=== PATIENT | male | born 1995 | race Asian ===

== ENCOUNTER 2019-01-07 17:50 | Observation (INO) | payer OTHER ==
[2019-01-07 19:53] LABS: ABS Basophils 0 10^3/ul (0-0.2); ABS Eosinophils 0.1 10^3/ul (0-0.6); ABS Lymphocytes 1.9 10^3/ul (1.0-4.8); ABS Monocytes 0.8 10^3/ul (0-0.8); ABS Neutrophils 8.9 10^3/ul (1.5-7.7); ABS Nucleated RBC 0 10^3/ul; Eosinophil % 0.6 %; Hematocrit 46 % (42-52); Hemoglobin 14.9 g/dl (14.0-18.0); Lymphocyte % 16.2 %; Mean Corpuscular HGB Conc 32 g/dl (31-36); Mean Corpuscular Hemoglobin 27 pg (27-31); Mean Corpuscular Volume 83 fL (80-94); Mean Platelet Volume 8.3 fL (7.4-10.4); Nucleated Red Blood Cells % 0; Platelet Count 325 10^3/ul (150-450); Red Blood Count 5.53 10^6/ul (4.00-5.40); Red Cell Distribution Width 15 % (10.5-15); White Blood Count 11.8 10^3/ul (3.5-10.8)
[2019-01-07] MEDS ORDERED: ceFAZolin 2 GM in NS PREMIX(*) 2 GM/100 ML BAG IVPB ONE (23:38)
[2019-01-07 23:47] LABS: Albumin 4.2 g/dL (3.2-5.2); Calcium 9.9 mg/dL (8.6-10.3); Potassium 4.4 mmol/L (3.5-5.0); Total Bilirubin 0.3 mg/dL (0.2-1.0)
[2019-01-07 23:53] LABS: Albumin/Globulin Ratio 1.5 (1-3); BUN/Creatinine Ratio 22.8 (8-20); EGFR African American 147.1 (>60); EGFR Non-African American 121.5 (>60); Globulin 2.8 g/dL (2-4)
[2019-01-07] MEDS ORDERED: Iohexol 300* (CONTRAST) 10 ML SDV IV ONE (23:58)
[2019-01-08] MEDS ORDERED: ceFAZolin* 2 GM* ONE DOSE (Duplex) IVPB
[2019-01-08] MEDS ORDERED: traMADol TAB* 50 MG PO PRN (00:04)
[2019-01-08] MEDS ORDERED: Acetaminophen TAB* 325 MG PO PRN (00:04)
[2019-01-08] MEDS ORDERED: Albuterol 2.5 MG/3 ML NEB.SOL* (0.083%) INH PRN (00:12)
[2019-01-08] MEDS ORDERED: DOXYcycline IV* 100 MG in NS 0.9% 250 ML* 250 ML IVPB SCH (01:00)
--- NOTE | 2019-01-08 01:00 | ED ---
Lower Extremity - HPI Summary HPI Summary: The patient is a 23 y/o M presenting to [facility] with a chief complaint of pain, swelling, and erythema in the left calf with gradual worsening over the last few days. He states that he injected himself with B12 supplements in the calf after diagnosing himself with anemia; he thought that the injections would help him feel less fatigued. He has used these injections almost every other day for the last few weeks, but the last injection was yesterday. The aching pain is currently rated 1/10 in severity. He denies fever, pain in thigh, or pain in right leg. No previous hx. - History of Current Complaint Chief Complaint: EDRashSkinAbscess Stated Complaint: SWOLLEN LT CALF AND ANKLE PER PT Time Seen by Provider: 01/07/19 21:16 Hx Obtained From: Patient Onset of Pain: Days Onset/Duration: Still Present - five Severity Initially: Mild Severity Currently: Moderate Pain Intensity: 1 Pain Scale Used: 0-10 Numeric Location: Is Diffuse - left calf Character Of Pain: Aching Associated Signs And Symptoms: Positive: Swelling, Redness, Other - NEGATIVE: pain in left thigh or right leg. Negative: Fever Aggravating Factor(s): Nothing Alleviating Factor(s): Nothing Able to Bear Weight: Yes - Allergies/Home Medications Allergies/Adverse Reactions: Allergies Allergy/AdvReac Type Severity Reaction Status Date / Time gluten Allergy Wheezing Verified 01/08/19 11:31 soy Allergy Wheezing Verified 01/08/19 11:31 PMH/Surg Hx/FS Hx/Imm Hx Endocrine/Hematology History: Denies: Hx Diabetes Cardiovascular History: Denies: Hx Hypertension History: Denies: Hx Renal Disease - Surgical History Surgery Procedure, Year, and Place: none Infectious Disease History: No Infectious Disease History: Denies: Traveled Outside the [place] in Last 30 Days - Family History Known Family History: Negative: Diabetes - Social History Alcohol Use: None Substance Use Type: Reports: None Smoking Status (MU): Never Smoked Tobacco Review of Systems Negative: Fever Positive: Other - POSITIVE: pain in left calf; NEGATIVE: pain in left thigh, pain in right leg Positive: Other - erythematous and swollen All Other Systems Reviewed And Are Negative: Yes Physical Exam - Summary Physical Exam Summary: Appearance: Well-appearing, Well-nourished, lying in bed comfortable Skin: Warm, dry, no obvious rash Eyes: sclera anicteric, no conjunctival pallor ENT: mucous membranes moist Neck: deferred Respiratory: No signs of respiratory distress Cardiovascular: Appears well perfused, pulses are nml Abdomen: deferred Musculoskeletal: Moving all 4 extremities without obvious discomfort Extremities: diffuse, swollen, and red left calf, no inflammation above the knee , tenseness in the skin caused by swelling, no pointness or fluctuations appreciated Neurological: Awake and alert, mentation is normal, speech is fluent and appropriate Psychiatric: affect is normal, does not appear anxious or depressed Triage Information Reviewed: Yes Vital Signs On Initial Exam: Initial Vitals Temp Pulse Resp BP Pulse Ox 98.1 F 68 18 127/73 98 01/07/19 17:59 01/07/19 17:59 01/07/19 17:59 01/07/19 17:59 01/07/19 17:59 Vital Signs Reviewed: Yes Diagnostics - Vital Signs Vital Signs Temp Pulse Resp BP Pulse Ox 01/07/19 23:47 119/66 01/07/19 21:07 98.6 F 91 16 127/65 96 01/07/19 19:23 98.8 F 63 18 126/87 97 01/07/19 17:59 98.1 F 68 18 127/73 98 - Laboratory Lab Results: Lab Results 01/07/19 01/07/19 01/07/19 Range/Units 19:35 19:38 19:38 WBC 11.8 H (3.5-10.8) 10^3/ul RBC 5.53 H (4.00-5.40) 10^6/ul Hgb 14.9 (14.0-18.0) g/dl Hct 46 (42-52) % MCV 83 (80-94) fL MCH 27 (27-31) pg MCHC 32 (31-36) g/dl RDW 15 (10.5-15) % Plt Count 325 (150-450) 10^3/ul MPV 8.3 (7.4-10.4) fL Neut % (Auto) 75.8 % Lymph % (Auto) 16.2 % Hardin % (Auto) 7.1 % Eos % (Auto) 0.6 % Baso % (Auto) 0.3 % Absolute Neuts (auto) 8.9 H (1.5-7.7) 10^3/ul Absolute Lymphs (auto) 1.9 (1.0-4.8) 10^3/ul Absolute Monos (auto) 0.8 (0-0.8) 10^3/ul Absolute Eos (auto) 0.1 (0-0.6) 10^3/ul Absolute Basos (auto) 0 (0-0.2) 10^3/ul Absolute Nucleated RBC 0 10^3/ul Nucleated RBC % 0 Sodium 137 (135-145) mmol/L Potassium 4.4 (3.5-5.0) mmol/L Chloride 99 L (101-111) mmol/L Carbon Dioxide 31 (22-32) mmol/L Anion Gap 7 (2-11) mmol/L BUN 18 (6-24) mg/dL Creatinine 0.79 (0.67-1.17) mg/dL Est GFR ( Amer) 147.1 (>60) Est GFR (Non-Af Amer) 121.5 (>60) BUN/Creatinine Ratio 22.8 H (8-20) Glucose 86 (70-100) mg/dL Lactic Acid 0.6 (0.5-2.0) mmol/L Calcium 9.9 (8.6-10.3) mg/dL Total Bilirubin 0.30 (0.2-1.0) mg/dL AST 71 H (13-39) U/L ALT 103 H (7-52) U/L Alkaline Phosphatase 62 (34-104) U/L C-Reactive Protein (<8.01) mg/L Total Protein 7.0 (6.4-8.9) g/dL Albumin 4.2 (3.2-5.2) g/dL Globulin 2.8 (2-4) g/dL Albumin/Globulin Ratio 1.5 (1-3) 01/07/19 Range/Units 19:38 WBC (3.5-10.8) 10^3/ul RBC (4.00-5.40) 10^6/ul Hgb (14.0-18.0) g/dl Hct (42-52) % MCV (80-94) fL MCH (27-31) pg MCHC (31-36) g/dl RDW (10.5-15) % Plt Count (150-450) 10^3/ul MPV (7.4-10.4) fL Neut % (Auto) % Lymph % (Auto) % Hardin % (Auto) % Eos % (Auto) % Baso % (Auto) % Absolute Neuts (auto) (1.5-7.7) 10^3/ul Absolute Lymphs (auto) (1.0-4.8) 10^3/ul Absolute Monos (auto) (0-0.8) 10^3/ul Absolute Eos (auto) (0-0.6) 10^3/ul Absolute Basos (auto) (0-0.2) 10^3/ul Absolute Nucleated RBC 10^3/ul Nucleated RBC % Sodium (135-145) mmol/L Potassium (3.5-5.0) mmol/L Chloride (101-111) mmol/L Carbon Dioxide (22-32) mmol/L Anion Gap (2-11) mmol/L BUN (6-24) mg/dL Creatinine (0.67-1.17) mg/dL Est GFR ( Amer) (>60) Est GFR (Non-Af Amer) (>60) BUN/Creatinine Ratio (8-20) Glucose (70-100) mg/dL Lactic Acid (0.5-2.0) mmol/L Calcium (8.6-10.3) mg/dL Total Bilirubin (0.2-1.0) mg/dL AST (13-39) U/L ALT (7-52) U/L Alkaline Phosphatase (34-104) U/L C-Reactive Protein 42.92 H (<8.01) mg/L Total Protein (6.4-8.9) g/dL Albumin (3.2-5.2) g/dL Globulin (2-4) g/dL Albumin/Globulin Ratio (1-3) Result Diagrams: 01/07/19 19:38 01/07/19 19:35 Lab Statement: Any lab studies that have been ordered have been reviewed, and results considered in the medical decision making process. - CT Left Lower Extremity CT CT Interpretation Completed By: Radiologist Summary of CT Findings: 1. Subcutaneous edema along the posterior calf with subcutaneous edema and confluence along the posteromedial aspect of the ankle and medial aspect of the hindfoot which may reflect cellulitis. 2. Thin fluid collection along the periphery of the posterior calf musculature in the posteromedial aspect of the proximal third of the calf measuring 3.0 x. 0.9 x 9.4 cm which is nonspecific and may reflect abscess or old hematoma. 3. Otherwise negative CT left lower extremity. ED physician has reviewed this report. - Ultrasound No standard instances Ultrasound Interpretation Completed By: Radiologist Summary of Ultrasound Findings: Venous Doppler LLE US: 1. Negative left lower extremity venous duplex exam without evidence of deep venous thrombosis. 2. Scanning in the area of interest in the left calf demonstrates a heterogeneous hypoechoic area measuring 7.6 x 1.0 x 5.0 cm which may reflect a. hematoma. ED physician has reviewed this report. Re-Evaluation - Re-Evaluation First Eval Re-Evaluation Time: 23:40 Change: Unchanged Comment: I spoke with the patient concerning imaging results and need for admission to [facility]. Lower Extremity Course/Dx - Course Course Of Treatment: The patient is a 23 y/o M with a chief complaint of pain, swelling, and erythema in the left calf with gradual worsening over the last few days. He states that he injected himself with B12 supplements in the calf after diagnosing himself with anemia; he thought that the injections would help him feel less fatigued. He has used these injections almost every other day for the last few weeks, but the last injection was yesterday. He denies fever, pain in thigh, or pain in right leg. Upon physical examination, the left calf is diffusely swollen and red, no inflammation above the knee, tenseness in the skin caused by swelling, no pointedness or fluctuations appreciated. In the ED course, the patient was administered Kefzol and Omnipaque contrast (for US). Bloodwork reveals slightly elevated WBCs, neuts, AST, ALT, and CRP. Lower Extremity CT reveals fluid accumulation and cellulitis. Venous Doppler LLE reveals possible hematoma. Lower Extremity XR is negative for fracture. I consulted Dr. Mckeon, surgery, at 2340, who suggests that the patient stay here for need of surgical intervention. I spoke with Dr. Park at 2345, who accepts the patient for admission. The patient is diagnose with cellulitis and calf abscess. He agrees with the plan and understands the need for admission at this time. - Diagnoses Provider Diagnoses: Cellulitis, Calf abscess - Physician Notifications Discussed Care Of Patient With: Devang Mckeon - surgery Time Discussed With Above Provider: 23:40 Instructed by Provider To: Other - I consulted Dr. Mckeon who suggests need for surgical intervention. I also spoke with Dr. Park, hospitalist, who accepts the patient for admission at 2345. Admit/Transition Orders Completed By ED Provider: Yes Discharge - Sign-Out/Discharge Documenting (check all that apply): Patient Departure - Patient will be admitted to [facility] for further care under Dr. Park. Patient Received Moderate/Deep Sedation with Procedure: No - Discharge Plan Condition: Stable Disposition: ADMITTED TO [facility] - Billing Disposition and Condition Condition: STABLE Disposition: Admitted to [facility] - Attestation Statements Document Initiated by Lulúibe: Yes Documenting Scribe: Jodie Cooper Provider For Whom John is Documenting (Include Credential): Dr. Igor Hernández MD Scribe Attestation: IJodie scribed for Dr. Igor Hernández MD on 01/09/19 at 0814. Scribe Documentation Reviewed: Yes Provider Attestation: The documentation as recorded by the Jodie gillespie accurately reflects the service I personally performed and the decisions made by me, Dr. Igor Hernández MD Status of Scribyenni Document: Viewed
--- NOTE | 2019-01-08 02:25 | HP ---
ADMITTING HISTORY AND PHYSICAL: DATE OF ADMISSION: 01/08/19 CHIEF COMPLAINT: Easy fatigability and left calf swelling. 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 He mentioned that he bought some vitamin B12 injectable supplements in the internet and has been injecting in his left calf to self treat his easy fatigability. Five days ago, his symptoms started, persistence of the signs and symptoms as well as worsening lower extremity edema, where he mentioned that it is very difficult for him to dorsiflex his left ankle led to his presentation in the ED, where he was diagnosed with cellulitis. A venous Doppler was done to rule out for DVT, did not show DVT, however, it did show some area of heterogenous hypoechoic area measuring 7.6 x 1.0 x 5.0 cm that is likely is a hematoma. Dr. Hernández had discussed the case with Dr. Mckeon, who suggested an overnight observation stay and the patient will be evaluated in a.m. The patient had been ordered 2 g of cefazolin, however, I have discontinued this and I am unclear whether this has been given and instead ordered blood cultures and then changed the antibiotics to doxycycline to cover for community acquired MRSA, given his history of intramuscular injection, which can place him at higher risk. PAST MEDICAL AND SURGICAL HISTORY: 1. OCD. 2. ADHD. 3. 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 MEDICATIONS: Reported meds were: 1. Prozac. 2. Adderall. 3. Cetirizine, however, this was not part of the meds he divulged to the nursing staff and hence we will further clarify. ALLERGIES: SOY and has SEASONAL ALLERGIES. FAMILY HISTORY: Heart disease in his paternal line. Hypertension in his father. Male-pattern baldness in his father. SOCIAL HISTORY: He is a ramone at [employer] majoring in [email or web address]. Denies any history of IV drug use, alcohol abuse, and smoking. REVIEW OF SYSTEMS: Easy fatigability, left lower extremity swelling. Denies any history of fevers, chills, nausea, vomiting, chest pain, shortness of breath , increased cough and/or sputum production, abdominal pain, diarrhea, constipation, pain, and/or increased frequency on urination, throat pain. The rest of the 14- point review of systems other than what was described are otherwise unremarkable. PHYSICAL EXAMINATION GENERAL APPEARANCE: The patient is awake, alert, and oriented x3, not in acute distress. VITAL SIGNS: The most recent vital signs of records with blood pressure of 127/ 65, 98.6 degrees Fahrenheit, 91 per minute heart rate, 16 per minute respiratory rate, saturating at 96% on room air. HEENT: Normocephalic, atraumatic. PERRLA. Extraocular muscles intact. Negative for icterus. Moist oral mucosa. Negative throat erythema. NECK: Soft, supple with no cervical lymphadenopathy. No JVD. CHEST: Clear to auscultation bilaterally. Good air entry. No wheezes, rales or rhonchi. HEART: S1, S2 within normal limits. Regular rate and rhythm. No murmurs, rubs , or gallops. ABDOMEN: Soft, nondistended, nontender. Normoactive bowel sounds x4 quadrants. EXTREMITIES: No cyanosis, clubbing, with 2+ left lower extremity edema, erythematous skin. Left lower extremity is erythematous, slightly tender on deeper palpation and functional constituting of difficulty of dorsiflexion of left foot. NEUROLOGIC: CN II through XII intact, nonfocal. DIAGNOSTIC STUDIES/LAB DATA: The most recent and pertinent laboratories drawn show CBC with WBC of 11.8, H and H were found to be normal. Sodium and potassium are normal. BUN and creatinine as well as GFR is normal. LFTs mildly elevated at 71 and 103. Venous Doppler shows negative left lower extremity venous duplex exam without evidence of DVT and there is a 7.6 x 1.0 x 5.0 cm hypoechoic area suspicious for hematoma. Left lower extremity x-ray has not been officially read yet. However, there are no bony cortical discontinuation suggestive of fractures on my review of his extremity x-ray. ASSESSMENT AND PLAN: The patient is a 23-year-old [place] gentleman with a history of obsessive-compulsive disorder, attention deficit hyperactivity disorder being admitted for cellulitis with likely traumatic hematoma due to self IM injection. 1. Cellulitis. We will place the patient on doxycycline given he has been injecting supposedly vitamin B12 supplementations in his left calf. Although he denies history of drug abuse and with just occasional marijuana in the past, we will obtain drug screen especially in the setting of elevated LFTs. We will place the patient on doxycycline and follow cultures. I will stop cefazolin, but I fear that this may have already been given in the ED prior to cultures. 2. Left lower extremity hematoma, likely traumatic in nature given his history. I do not believe that there has been some secondary infection of the hematoma at this time, given he is nonseptic in appearance with only mildly elevated leukocytosis. We will await any further input from Surgery in a.m. Dr. Mckeon has been made aware of patient by Dr. Hernández. 3. Easily fatigability. Possibly due to his obsessive-compulsive disorder, attention deficit hyperactivity disorder somatization, however, we will check TSH in a.m. 4. Obsessive-compulsive disorder. We will clarify with the patient of what he is currently on given the medications he spoke to me in person are somewhat different from what has been obtained by nursing staff. 5. Elevated liver function tests, possibly secondary to nonalcoholic steatohepatitis, however, given history of IM drug injection with vitamin B12, we will rule the patient out for viral hepatitis and we will obtain liver ultrasound to further evaluate. 6. DVT prophylaxis. The patient is at low risk and has been ruled out for DVT on the left lower extremity. We will advice being up with assistance. 7. Disposition. As above. [id number]/[facility] #: [id number] HERMAN
[2019-01-08 07:18] LABS: Activated Partial Thrombo Time 32.3 seconds (26.0-36.3); INR 1.02 (0.77-1.02)
[2019-01-08 07:25] LABS: C Reactive Protein 36.01 mg/L (<8.01)
[2019-01-08 08:07] LABS: TSH (Thyroid Stimulating Horm) 1.88 mcIU/mL (0.34-5.60)
[2019-01-08] MEDS ORDERED: Piperacillin/Tazobac ADVAN(*) 3.375 GM in NS 0.9% 100 ML* 100 ML IVPB ONE (08:57)
[2019-01-08] MEDS ORDERED: Zosyn per Pharmacy* NOTE FOLLOW UP SCH (09:00)
[2019-01-08] MEDS ORDERED: Vancomycin(*) 1,250 MG in NS 0.9% 250 ML* 250 ML IVPB ONE (09:00)
[2019-01-08] MEDS ORDERED: NS 0.9% 1000 ML** 1,000 ML IV SCH (09:00)
[2019-01-08] MEDS ORDERED: Vancomycin per Pharmacy* NOTE FOLLOW UP SCH (09:00)
[2019-01-08 11:02] LABS: Hepatitis B Surface Antigen Nonreactive (Nonreactive)
[2019-01-08 11:34] LABS: Hepatitis C Antibody Nonreactive (Nonreactive)
--- NOTE | 2019-01-08 11:43 | CONS ---
CC: [facility]; [facility] * SURGICAL CONSULTATION DATE OF CONSULTATION/DATE OF DICTATION: 01/08/2019. REFERRING PHYSICIAN: Dr. Paulino Park. REASON FOR CONSULTATION: Left calf swelling with discomfort. HISTORY OF PRESENT ILLNESS: Mr. Montano is 23-year-old, [employer] ramone in the [employer] who presented to the emergency room last evening after he had developed four or five days of swelling in the left calf with redness and some discomfort. He had no fevers, shakes, or chills. He states that he has been injecting vitamin B12 intramuscularly into the left calf for supplementation that he purchased on the internet. He felt that this was treating his fatigue. When he presented to the emergency room last night he was noted to be afebrile and had some swelling in the left calf with some mild erythema. He had palpable left posterior tibial and dorsalis pedis pulses with no loss of sensation in the foot and no motor dysfunction. He underwent a venous Doppler study which was unremarkable for DVT. There was some concern about the heterogenous hypoechoic area with possible abscess. He underwent a CT scan of the below knee area which I reviewed with Dr. Sanz. There seems to be a subfascial abscess along the medial posterior calf worrisome for an abscess. Surgical consultation has been obtained. He has been admitted to the Hospitalist Service and started on IV antibiotics as well. PAST MEDICAL HISTORY: 1. OCD. 2. ADHD. PAST SURGICAL HISTORY: None. MEDICATIONS: Prozac, Adderall, Cetirizine. ALLERGIES: SOY, SEASONAL ALLERGIES. 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 He denies the history of drug use, alcohol abuse, or tobacco. REVIEW OF SYSTEMS: As per above. PHYSICAL EXAM: General: Well-developed, well-nourished male who appears to be in no apparent distress. Vital Signs: Temperature 98.3, pulse 59, blood pressure 115/51. Lungs: Clear to auscultation with normal respiratory effort. Heart: Regular rate and rhythm without murmurs, rubs, or gallops. Abdomen: Soft, nondistended. Extremities: On his left thigh, there is no evidence of swelling. He has a strong palpable left popliteal pulse. There is a strong posterior tibial and dorsalis pedis pulse. There is no swelling in the foot. He is intact to light touch and pinprick in the foot. He has full range of motion and motor strength, and dorsiflexion and plantarflexion of the foot itself. There is no pain on passive movement. His calf and pretibial area are mildly edematous with some very faint erythema along the calf. There is no one area of localized tenderness or exquisite pain, although the entire calf muscle is tender on palpation. There are no overlying skin changes. There is no crepitance. IMPRESSION: Cellulitis of the left lower extremity with apparent subfascial abscess in the medial posterior calf area secondary to vitamin injections over the last several days. I reviewed the findings with Dr. Sanz from Radiology and he does not feel this is amenable to adequate percutaneous drainage and/or sampling. I also discussed his care with Dr. Mcdaniel from Orthopedics. He feels that the abscess being subfascial may be involving the muscle, that this should most likely be surgically drained. I do not believe that there is evidence of acute compartment syndrome or evidence of fulminant soft tissue infection; however, I will plan for an incision and drainage of the abscess today. This is difficult to determine the location on physical examination and he will have an ultrasound guided marking done preoperatively. Will continue antibiotics which now will consistent of Zosyn and Vancomycin and cultures will be obtained. I did discuss his care with Dr. Lim, the hospitalist who will be taking care of him. I have discussed all of the above with the patient today. PLAN: Surgical incision and drainage of left calf abscess today. The procedure was discussed with the patient, and the risks of, but not limited to, bleeding, infection, discomfort, further hospital stay, further surgical intervention depending on clinical course and findings at surgery, disability of the left lower extremity, morbidity, and very rarely consideration of amputation depending on the clinical course were all described. Minimal risk of anesthesia was also explained. He declined my offer to call his parents and/or family for an update. [id number]/[facility] #: [id number] HERMAN
--- NOTE | 2019-01-08 12:48 | PN ---
Subjective Date of Service: 01/08/19 Interval History: Pt stated that he had used Vit B112 injections for fatigue. Bought Vit B12 and syringes on the internet Objective Active Medications: Acetaminophen (Tylenol Tab*) 650 mg PO Q6H PRN PRN Reason: Pain/Fever Albuterol (Ventolin 2.5 Mg/3 Ml Neb.Michelle*) 2.5 mg INH Q4HR PRN PRN Reason: SOB/WHEEZING Sodium Chloride (Ns 0.9% 1000 Ml) 1,000 mls @ 150 mls/hr IV PER RATE [facility] Last Admin: 01/08/19 10:08 Dose: 150 mls/hr Piperacillin Sod/Tazobactam (Sod 3.375 gm/ Sodium Chloride) 100 mls @ 25 mls/ hr IVPB Q8H [facility] Vancomycin HCl 1,250 mg/ (Sodium Chloride) 250 mls @ 166.667 mls/hr IVPB Q8H [facility] Pharmacy Consult (Zosyn Per Pharmacy*) 1 note FOLLOW UP .ZOSYN PER PHARMACY [facility] Pharmacy Consult (Vancomycin Per Pharmacy*) 1 note FOLLOW UP .VANC PER PHARMACY [facility] Pharmacy Profile Note (Vancomycin Trough Check) 1 note FOLLOW UP 1830 ONE Stop: 01/09/19 18:31 Tramadol HCl (Ultram*) 50 mg PO Q8H PRN PRN Reason: PAIN Vital Signs - 8 hr 01/08/19 01/08/19 07:28 07:58 Pulse Rate 63 Respiratory 20 16 Rate Blood Pressure 105/65 (mmHg) O2 Sat by Pulse 99 Oximetry Oxygen Devices in Use Now: None Appearance: 23 yo M in nAD, aAOx3 Eyes: No Scleral Icterus, PERRLA Ears/Nose/Mouth/Throat: NL Teeth, Lips, Gums, Mucous Membranes Moist Neck: NL Appearance and Movements; NL JVP, Trachea Midline Respiratory: Symmetrical Chest Expansion and Respiratory Effort, Clear to Auscultation Cardiovascular: NL Sounds; No Murmurs; No JVD, RRR Abdominal: NL Sounds; No Tenderness; No Distention Lymphatic: No Cervical Adenopathy Extremities: No Clubbing, Cyanosis, - - left calf edema and palpable fluctulant mass at 10 x 5 cm Neurological: Alert and Oriented x 3, NL Muscle Strength and Tone Result Diagrams: 01/07/19 19:38 01/07/19 19:35 Additional Lab and Data: Lab Results 01/07/19 01/07/19 01/07/19 Range/Units 19:35 19:38 19:38 WBC 11.8 H (3.5-10.8) 10^3/ul RBC 5.53 H (4.00-5.40) 10^6/ul Hgb 14.9 (14.0-18.0) g/dl Hct 46 (42-52) % MCV 83 (80-94) fL MCH 27 (27-31) pg MCHC 32 (31-36) g/dl RDW 15 (10.5-15) % Plt Count 325 (150-450) 10^3/ul MPV 8.3 (7.4-10.4) fL Neut % (Auto) 75.8 % Lymph % (Auto) 16.2 % [place] % (Auto) 7.1 % Eos % (Auto) 0.6 % Baso % (Auto) 0.3 % Absolute Neuts (auto) 8.9 H (1.5-7.7) 10^3/ul Absolute Lymphs (auto) 1.9 (1.0-4.8) 10^3/ul Absolute Monos (auto) 0.8 (0-0.8) 10^3/ul Absolute Eos (auto) 0.1 (0-0.6) 10^3/ul Absolute Basos (auto) 0 (0-0.2) 10^3/ul Absolute Nucleated RBC 0 10^3/ul Nucleated RBC % 0 Sodium 137 (135-145) mmol/L Potassium 4.4 (3.5-5.0) mmol/L Chloride 99 L (101-111) mmol/L Carbon Dioxide 31 (22-32) mmol/L Anion Gap 7 (2-11) mmol/L BUN 18 (6-24) mg/dL Creatinine 0.79 (0.67-1.17) mg/dL Est GFR ( Amer) 147.1 (>60) Est GFR (Non-Af Amer) 121.5 (>60) BUN/Creatinine Ratio 22.8 H (8-20) Glucose 86 (70-100) mg/dL Lactic Acid 0.6 (0.5-2.0) mmol/L Calcium 9.9 (8.6-10.3) mg/dL Total Bilirubin 0.30 (0.2-1.0) mg/dL AST 71 H (13-39) U/L ALT 103 H (7-52) U/L Alkaline Phosphatase 62 (34-104) U/L C-Reactive Protein (<8.01) mg/L Total Protein 7.0 (6.4-8.9) g/dL Albumin 4.2 (3.2-5.2) g/dL Globulin 2.8 (2-4) g/dL Albumin/Globulin Ratio 1.5 (1-3) 01/07/19 Range/Units 19:38 WBC (3.5-10.8) 10^3/ul RBC (4.00-5.40) 10^6/ul Hgb (14.0-18.0) g/dl Hct (42-52) % MCV (80-94) fL MCH (27-31) pg MCHC (31-36) g/dl RDW (10.5-15) % Plt Count (150-450) 10^3/ul MPV (7.4-10.4) fL Neut % (Auto) % Lymph % (Auto) % [place] % (Auto) % Eos % (Auto) % Baso % (Auto) % Absolute Neuts (auto) (1.5-7.7) 10^3/ul Absolute Lymphs (auto) (1.0-4.8) 10^3/ul Absolute Monos (auto) (0-0.8) 10^3/ul Absolute Eos (auto) (0-0.6) 10^3/ul Absolute Basos (auto) (0-0.2) 10^3/ul Absolute Nucleated RBC 10^3/ul Nucleated RBC % Sodium (135-145) mmol/L Potassium (3.5-5.0) mmol/L Chloride (101-111) mmol/L Carbon Dioxide (22-32) mmol/L Anion Gap (2-11) mmol/L BUN (6-24) mg/dL Creatinine (0.67-1.17) mg/dL Est GFR ( Amer) (>60) Est GFR (Non-Af Amer) (>60) BUN/Creatinine Ratio (8-20) Glucose (70-100) mg/dL Lactic Acid (0.5-2.0) mmol/L Calcium (8.6-10.3) mg/dL Total Bilirubin (0.2-1.0) mg/dL AST (13-39) U/L ALT (7-52) U/L Alkaline Phosphatase (34-104) U/L C-Reactive Protein 42.92 H (<8.01) mg/L Total Protein (6.4-8.9) g/dL Albumin (3.2-5.2) g/dL Globulin (2-4) g/dL Albumin/Globulin Ratio (1-3) Assess/Plan/Problems-Billing Assessment: 23 yo M with h/o OCD was buying Vit B12 and injecting IM without medical supervision and developed a fluid collection, likely abscess in left calf - Patient Problems (1) Calf abscess Comment: Cahmged antibiotics from Doxy to Zosyn and Vanc for broader coverage Dr. Mckeon plans to take pt to OR for I&D tomorrow (2) LFT elevation Comment: elevated LFT';s and complex liver cyst on US Pt will need a nonurgent MRI of liver unless LFT's continue to climb, then it should be done during his hospital stay (3) DVT prophylaxis Comment: ambulation Status and Disposition: OBV will be changed to inpatient
--- NOTE | 2019-01-08 14:39 | CONS ---
CONSULTATION REPORT: DATE OF ADMISSION: 01/08/19 DATE OF CONSULT: 01/08/19 ATTENDING ORTHOPEDIC PROVIDER: Dr. Prashant Mcdaniel. CHIEF COMPLAINT: Left calf swelling. HISTORY OF PRESENT ILLNESS: The patient is a 23-year-old male who presented to the [facility] Emergency Room on 01/08/19 with a complaint of left calf pain and swelling x5 days. Pain and swelling has progressively worsened and has not been associated with fever or chills. Redness has been localized to the calf without streaking. The patient states he injects B12 into his muscles every other day for the complaint of fatigue. He injected this calf roughly 5 days ago. Other sites of injection have included his left biceps and bilateral pecs, pec being the last injection 3 days ago. The patient's complaints today include left calf pain, redness, and swelling which has improved since arriving to the hospital and starting antibiotics. He is being seen by Dr. Mckeon from General Surgery who consult orthopedics. On CT scan , left calf shows subcutaneous edema along the posterior calf with subcutaneous edema in confluence along the posterior medial aspect of the ankle and medial aspect of the hindfoot which may have reflect cellulitis as well as thin fluid collection along the periphery of the posterior calf musculature and the posterior medial aspect of proximal third of the calf measuring 3 X 0.9 x 9.5 cm. PAST MEDICAL HISTORY: OCD and ADHD. MEDICATIONS: 1. Prozac. 2. Adderall. ALLERGIES: Soy. FAMILY HISTORY: Heart disease. 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 Denies any IV drug use beside from injecting B12. REVIEW OF SYSTEMS: General: No fever, chills, or recent illness. HEENT: No headache. Cardiac: No chest pain. Respiratory: No shortness of breath. Abdomen: No abdominal pain, nausea, vomiting, or diarrhea. Neuro: Sensation is intact to all extremities without numbness or paresthesias. Musculoskeletal: Pain of left calf. Patient denies any pain of his left biceps or bilateral pecs which are other injection sites. Skin: Redness of left calf. Denies any redness or swelling of other sites with special attention to injection sites which he denies any redness or swelling of. PHYSICAL EXAM: General Appearance: The patient is well appearing, in no acute distress. Vitals: Temperature 98.3, pulse rate 52, respiratory rate 16, oxygen saturation 100% , blood pressure 115/51. HEENT: Normocephalic, atraumatic. Extraocular movements intact. Cardio: S1, S2. Respiratory: Clear to auscultation bilaterally. Abdomen: Nondistended. Musculoskeletal: Upper Extremities: Skin envelope intact. No obvious deformity. Nontender to palpation. Moves bilateral upper extremities well without pain. No tenderness, swelling, fluctuance or erythema of left bicep. Lower extremities: Bilateral lower extremities skin envelope intact. No obvious bony deformity. Tender to palpation over the left medial calf only. The left calf is edematous and erythematous without proximal streaking. The medial aspect of the calf is fluctuant. All compartments are compressible. Left knee, ankle, and MTP flexion and extension intact without pain. Neuro: Sensation intact to light touch throughout bilateral upper and lower extremities. Vascular: DP pulse 2+ bilaterally. Capillary refill less than 2 seconds distally, bilateral lower extremities. Psych: Appropriate affect. Skin: Erythema of the left calf. Bilateral pecs nontender without warmth, erythema, edema or fluctuance. DIAGNOSTIC STUDIES: Venous Doppler of the left lower extremity negative for DVT , positive for heterogeneous hypoechoic area measuring 7.6 x 1.5 cm. Lower extremity x-ray, left, no fracture identified. Soft tissue swelling is noted. CT of the left lower extremity, fluid collection measuring 3 x 0.9 x 9.4 cm. ASSESSMENT: This is a 23-year-old male with left lower extremity cellulitis and likely traumatic hematoma versus abscess status post B12 injection. PLAN: This case has been discussed with Dr. Mckeon as well as Dr. Mcdaniel. General surgery will be providing surgical management. The patient can continue on IV antibiotics which currently include Zosyn and vancomycin. He will need to have I and D of the fluid collection in his left calf. The patient has been instructed to discontinue self-injecting B12 or any other substance. He has been encouraged to follow up with his PCP to discuss easy fatigability. He will be brought to operating room tomorrow with Dr. Mckeon. Please feel free to contact Orthopedics with any questions or concerns going forward. VINNIE TABARES [id number]/[facility] #: [id number] HERMAN
[2019-01-08] MEDS: ZOSYN 3.375 GM Q8H per EXTENDED INFUSION IVPB SCH ×4 (15:30→22:41)
[2019-01-08] MEDS: Vancomycin(*) 1,250 MG in NS 0.9% 250 ML* 250 ML IVPB SCH (20:46)
[2019-01-09] MEDS ORDERED: Lactated Ringers 1000 ML Bag* 1,000 ML IV SCH (00:01)
[2019-01-09] MEDS ORDERED: NS 0.9% 1000 ML** 1,000 ML IV SCH (02:30)
[2019-01-09] MEDS: Vancomycin(*) 1,250 MG in NS 0.9% 250 ML* 250 ML IVPB SCH ×3 (03:53→21:21)
[2019-01-09 05:40] LABS: ABS Basophils 0 10^3/ul (0-0.2); ABS Eosinophils 0.1 10^3/ul (0-0.6); ABS Lymphocytes 1.7 10^3/ul (1.0-4.8); ABS Monocytes 0.6 10^3/ul (0-0.8); ABS Neutrophils 7.3 10^3/ul (1.5-7.7); ABS Nucleated RBC 0 10^3/ul; Hematocrit 47 % (42-52); Hemoglobin 14.9 g/dl (14.0-18.0); Lymphocyte % 17.3 %; Mean Corpuscular HGB Conc 32 g/dl (31-36); Mean Corpuscular Hemoglobin 27 pg (27-31); Mean Corpuscular Volume 84 fL (80-94); Mean Platelet Volume 8.5 fL (7.4-10.4); Nucleated Red Blood Cells % 0.1; Platelet Count 318 10^3/ul (150-450); Red Blood Count 5.59 10^6/ul (4.00-5.40); Red Cell Distribution Width 15 % (10.5-15); White Blood Count 9.8 10^3/ul (3.5-10.8)
[2019-01-09] MEDS: ZOSYN 3.375 GM Q8H per EXTENDED INFUSION IVPB SCH ×6 (05:47→23:02)
[2019-01-09] MEDS ORDERED: Famotidine IV* 10 MG/ML 2 ML (20 mg) IV ONE (06:00)
[2019-01-09 06:04] LABS: Albumin 3.5 g/dL (3.2-5.2); Albumin/Globulin Ratio 1.2 (1-3); BUN/Creatinine Ratio 14.1 (8-20); Calcium 8.7 mg/dL (8.6-10.3); EGFR African American 135.2 (>60); EGFR Non-African American 111.7 (>60); Phosphorus 3.7 mg/dL (2.5-5.0); Potassium 4.4 mmol/L (3.5-5.0); Total Bilirubin 0.5 mg/dL (0.2-1.0); Total Protein 6.5 g/dL (6.4-8.9)
[2019-01-09] MEDS ORDERED: Famotidine IV* 10 MG/ML 2 ML (20 mg) ONE (06:55)
[2019-01-09] MEDS ORDERED: Buffered Lidocaine 1% SYRIN* 1 ML/SYRINGE INTRADERM ONE (06:55)
[2019-01-09] MEDS ORDERED: Midazolam* 1 MG/ML 5 ML VIAL (5 MG) ONE (07:30)
[2019-01-09] MEDS ORDERED: fentaNYL* 50 MCG/ML 2 ML VIAL (100 MCG VIAL) ONE (07:30)
[2019-01-09] MEDS ORDERED: Bupivacaine 0.5% W/EPI SDV* 30 ML VIAL ONE (07:34)
[2019-01-09] MEDS ORDERED: Bupivacaine 0.5%* 50 ML VIAL ONE (07:36)
[2019-01-09] MEDS ORDERED: Ondansetron INJ* 2 MG/ML VIAL ONE (07:46)
[2019-01-09] MEDS ORDERED: Dexamethasone IV* 4 MG/ML 1 ML (4 MG) ONE (07:46)
[2019-01-09] MEDS ORDERED: Lidocaine 2% PF * 5 ML VIAL ONE (07:46)
[2019-01-09] MEDS ORDERED: Ketorolac INJ* 30 MG/ML 1 ML VIAL ONE (07:46)
[2019-01-09] MEDS ORDERED: DiMENhydriNATE IV* 50 MG/ML VIAL ONE (07:46)
[2019-01-09] MEDS ORDERED: Propofol* 10 MG/ML 20 ML BTL ONE (07:46)
[2019-01-09] MEDS ORDERED: HYDROmorphone INJ1* 1 MG/ML SYRINGE IV PRN (08:10)
[2019-01-09] MEDS ORDERED: Naloxone* 0.4 MG/ML 1 ML VIAL IV PRN (08:10)
[2019-01-09] MEDS ORDERED: oxyCODONE/Acetamin 5/325 MG* TAB PO PRN ×2 (08:10→09:19)
[2019-01-09] MEDS ORDERED: DiMENhydriNATE IV* 50 MG/ML VIAL IV PUSH PRN (08:10)
--- NOTE | 2019-01-09 08:21 | BRIEFOPN ---
Brief Operative Note - Surgery Procedures: OPERATIVE REPORT Pre-op: Left calf abscess Post-Op: SAme Procedure:I and D of left calf abscess Surgeon: MD Mike Asst: none Anes: general with local, Dr. Lechuga IVF:min EBL:min Specimen: Fluid for gram stain and culture Drain: Gauze packing Wound: 4 To PACU
[2019-01-09] MEDS ORDERED: Ketorolac INJ* 30 MG/ML 1 ML VIAL IV PRN (09:19)
--- NOTE | 2019-01-09 11:49 | OP ---
CC: [facility] * DATE OF OPERATION: 01/09/19 - ROOM #332 DATE OF : 95 SURGEON: Dr. Mckeon. ANESTHESIOLOGIST: Dr. Lechuga. ANESTHESIA: General with local. PRE-OP DIAGNOSIS: Left medial calf abscess. POST-OP DIAGNOSIS: Left medial calf abscess. OPERATIVE PROCEDURE: Incision and drainage of left medial calf abscess. ESTIMATED BLOOD LOSS: Minimal. IV FLUIDS: Minimal. WOUND CLASSIFICATION: IV. SPECIMENS: Fluid for Gram stain and culture. DRAINS: Two-inch Juni packing. 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 He presented to the emergency room with 4 to 5 days of left calf swelling, redness, and discomfort. Please see the separate dictated consultation and history and physical. An ultrasound showed no evidence of DVT, but he did have a subcutaneous pocket concerning for abscess in the right clinical setting. He underwent a CT scan of the left lower extremity yesterday, which showed a rather large fluid collection deep to the fascia along the posteromedial aspect of the left calf. Due to the clinical appearance and concern for infection, this has been presumed to be an abscess and we did recommend that he undergo an incision and drainage for optimal management in addition to the initiation of intravenous antibiotics. The procedure was discussed with the patient and the risks, but not limited to bleeding, infection, further surgical intervention depending on findings, discomfort, prolonged hospital stay, permanent disability due to infection or nerve or muscle injury. Limb loss was also explained. The risk of anesthesia were discussed. The patient has had full sensation in the lower extremities with strong palpable pulses and intact sensation at the distal foot and there is no evidence of compartment syndrome or fulminant soft tissue infection at this time. DESCRIPTION OF PROCEDURE: Written informed consent was obtained, the left calf was marked with indelible ink and antibiotics had been administered. The patient was taken to the operating room and placed in the supine position. Sequential compression device was placed in the right lower extremity. General anesthesia was administered. The circumferential left lower extremity from the knee down to the toes were prepped and draped in usual sterile fashion. The abscess cavity had been marked with ultrasound preoperatively and time-out verification was completed. A 0.25% Marcaine was infiltrated in the area over the marker in the posterolateral calf and a vertical incision was made of about 3 to 4 cm. This was carried down through subcutaneous tissue, which was noted to be edematous but viable. The fascia was opened, and immediately deep to the fascia, there was a large 10 cm x 4 cm cavity of creamy viscous buckley fluid and pus that was drained and cultured and the loculations were broken up distally. The underlying muscle was viable and this did not seem to extend other than the boundaries as described above. Hemostasis was assured. The wound was irrigated. I packed this with a moist 2- inch Juni gauze and the entire incision was left open and covered with gauze and a 4-inch Kerlix wrap. The patient tolerated the procedure well and was taken to the recovery room in stable condition. [id number]/[facility] #: [id number] MTDD
[2019-01-09] MEDS ORDERED: FLUoxetine CAP* 20 MG PO ONE (12:13)
--- NOTE | 2019-01-09 12:20 | PN ---
Subjective Date of Service: 01/09/19 Interval History: Mild pain L leg. No new c/o. Objective Active Medications: Acetaminophen (Tylenol Tab*) 650 mg PO Q6H PRN PRN Reason: Pain/Fever Albuterol (Ventolin 2.5 Mg/3 Ml Neb.Michelle*) 2.5 mg INH Q4HR PRN PRN Reason: SOB/WHEEZING Fluoxetine HCl (Prozac Cap*) 60 mg PO DAILY ON LICENSE OF [facility] Fluoxetine HCl (Prozac Cap*) 60 mg PO ONCE ONE Stop: 01/09/19 12:14 Piperacillin Sod/Tazobactam (Sod 3.375 gm/ Sodium Chloride) 100 mls @ 25 mls/ hr IVPB Q8H ON LICENSE OF [facility] Last Admin: 01/09/19 05:47 Dose: 25 mls/hr Vancomycin HCl 1,250 mg/ (Sodium Chloride) 250 mls @ 166.667 mls/hr IVPB Q8H ON LICENSE OF [facility] Last Admin: 01/09/19 11:40 Dose: 166.667 mls/hr Sodium Chloride (Ns 0.9% 1000 Ml) 1,000 mls @ 125 mls/hr IV PER RATE ON LICENSE OF [facility] Last Admin: 01/09/19 03:55 Dose: 125 mls/hr Ketorolac Tromethamine (Toradol Inj*) 30 mg IV Q6H PRN PRN Reason: PAIN Oxycodone/Acetaminophen (Percocet 5/325 Tab*) 1 tab PO Q4H PRN PRN Reason: PAIN Pharmacy Consult (Zosyn Per Pharmacy*) 1 note FOLLOW UP .ZOSYN PER PHARMACY ON LICENSE OF [facility] Pharmacy Consult (Vancomycin Per Pharmacy*) 1 note FOLLOW UP .VANC PER PHARMACY ON LICENSE OF [facility] Pharmacy Profile Note (Vancomycin Trough Check) 1 note FOLLOW UP 1729 ONE Stop: 01/09/19 19:31 Tramadol HCl (Ultram*) 50 mg PO Q8H PRN PRN Reason: PAIN Vital Signs - 8 hr 01/09/19 01/09/19 01/09/19 08:21 08:22 08:25 Temperature 97.3 F Pulse Rate 61 62 64 Respiratory 14 14 Rate Blood Pressure 105/50 104/54 (mmHg) O2 Sat by Pulse 100 100 100 Oximetry 01/09/19 01/09/19 01/09/19 09:11 09:30 10:01 Temperature 97.4 F 97.4 F Pulse Rate 61 61 Respiratory 18 18 18 Rate Blood Pressure 139/63 139/63 (mmHg) O2 Sat by Pulse 100 100 Oximetry 01/09/19 11:27 Temperature Pulse Rate 82 Respiratory 18 Rate Blood Pressure 109/63 (mmHg) O2 Sat by Pulse 98 Oximetry Oxygen Devices in Use Now: None Appearance: Alert, sitting on the edge of his bed. In good spirits. Looks comfortable. Extremities: No Edema, No Clubbing, Cyanosis, - - L calf dressed with gauze Skin: No Rash or Ulcers, No Nodules or Sclerosis Neurological: Alert and Oriented x 3, NL Sensation Result Diagrams: 01/09/19 05:12 01/09/19 05:12 Additional Lab and Data: Lab Results 01/07/19 01/07/19 01/07/19 Range/Units 19:35 19:38 19:38 WBC 11.8 H (3.5-10.8) 10^3/ul RBC 5.53 H (4.00-5.40) 10^6/ul Hgb 14.9 (14.0-18.0) g/dl Hct 46 (42-52) % MCV 83 (80-94) fL MCH 27 (27-31) pg MCHC 32 (31-36) g/dl RDW 15 (10.5-15) % Plt Count 325 (150-450) 10^3/ul MPV 8.3 (7.4-10.4) fL Neut % (Auto) 75.8 % Lymph % (Auto) 16.2 % [place] % (Auto) 7.1 % Eos % (Auto) 0.6 % Baso % (Auto) 0.3 % Absolute Neuts (auto) 8.9 H (1.5-7.7) 10^3/ul Absolute Lymphs (auto) 1.9 (1.0-4.8) 10^3/ul Absolute Monos (auto) 0.8 (0-0.8) 10^3/ul Absolute Eos (auto) 0.1 (0-0.6) 10^3/ul Absolute Basos (auto) 0 (0-0.2) 10^3/ul Absolute Nucleated RBC 0 10^3/ul Nucleated RBC % 0 Sodium 137 (135-145) mmol/L Potassium 4.4 (3.5-5.0) mmol/L Chloride 99 L (101-111) mmol/L Carbon Dioxide 31 (22-32) mmol/L Anion Gap 7 (2-11) mmol/L BUN 18 (6-24) mg/dL Creatinine 0.79 (0.67-1.17) mg/dL Est GFR ( Amer) 147.1 (>60) Est GFR (Non-Af Amer) 121.5 (>60) BUN/Creatinine Ratio 22.8 H (8-20) Glucose 86 (70-100) mg/dL Lactic Acid 0.6 (0.5-2.0) mmol/L Calcium 9.9 (8.6-10.3) mg/dL Total Bilirubin 0.30 (0.2-1.0) mg/dL AST 71 H (13-39) U/L ALT 103 H (7-52) U/L Alkaline Phosphatase 62 (34-104) U/L C-Reactive Protein (<8.01) mg/L Total Protein 7.0 (6.4-8.9) g/dL Albumin 4.2 (3.2-5.2) g/dL Globulin 2.8 (2-4) g/dL Albumin/Globulin Ratio 1.5 (1-3) 01/07/19 Range/Units 19:38 WBC (3.5-10.8) 10^3/ul RBC (4.00-5.40) 10^6/ul Hgb (14.0-18.0) g/dl Hct (42-52) % MCV (80-94) fL MCH (27-31) pg MCHC (31-36) g/dl RDW (10.5-15) % Plt Count (150-450) 10^3/ul MPV (7.4-10.4) fL Neut % (Auto) % Lymph % (Auto) % [place] % (Auto) % Eos % (Auto) % Baso % (Auto) % Absolute Neuts (auto) (1.5-7.7) 10^3/ul Absolute Lymphs (auto) (1.0-4.8) 10^3/ul Absolute Monos (auto) (0-0.8) 10^3/ul Absolute Eos (auto) (0-0.6) 10^3/ul Absolute Basos (auto) (0-0.2) 10^3/ul Absolute Nucleated RBC 10^3/ul Nucleated RBC % Sodium (135-145) mmol/L Potassium (3.5-5.0) mmol/L Chloride (101-111) mmol/L Carbon Dioxide (22-32) mmol/L Anion Gap (2-11) mmol/L BUN (6-24) mg/dL Creatinine (0.67-1.17) mg/dL Est GFR ( Amer) (>60) Est GFR (Non-Af Amer) (>60) BUN/Creatinine Ratio (8-20) Glucose (70-100) mg/dL Lactic Acid (0.5-2.0) mmol/L Calcium (8.6-10.3) mg/dL Total Bilirubin (0.2-1.0) mg/dL AST (13-39) U/L ALT (7-52) U/L Alkaline Phosphatase (34-104) U/L C-Reactive Protein 42.92 H (<8.01) mg/L Total Protein (6.4-8.9) g/dL Albumin (3.2-5.2) g/dL Globulin (2-4) g/dL Albumin/Globulin Ratio (1-3) Microbiology and Other Data: Microbiology 01/09/19 10:00 Gram Stain - Final Wound 01/08/19 00:25 Aerobic Blood Culture - Preliminary Blood Venous No Growth Day 1 Anaerobic Blood Culture - Preliminary No Growth Day 1 01/08/19 00:25 Aerobic Blood Culture - Preliminary Blood Venous No Growth Day 1 Anaerobic Blood Culture - Preliminary No Growth Day 1 Assess/Plan/Problems-Billing Assessment: 23 yo M with h/o OCD was buying Vit B12 and injecting IM without medical supervision and developed a fluid collection, likely abscess in left calf - Patient Problems (1) Calf abscess Current Visit: Yes Status: Acute Code(s): L02.419 - CUTANEOUS ABSCESS OF LIMB, UNSPECIFIED SNOMED Code(s): 16678637706998426 Comment: Cahmged antibiotics from Doxy to Zosyn and Vanc for broader coverage Dr. Mckeon did I&D and packing 01/09. LIkely can go home 01/[address] on oral antibiotic after Dr. Sunshine re-packs wound. (2) Psychiatric diagnosis Current Visit: Yes Status: Acute Code(s): F99 - MENTAL DISORDER, NOT OTHERWISE SPECIFIED SNOMED Code(s): 39385250 Comment: OCD and ADHD. Pt will take his Adderall XR when he gets home. Continue fluoxetine. (3) LFT elevation Current Visit: Yes Status: Acute Code(s): R94.5 - ABNORMAL RESULTS OF LIVER FUNCTION STUDIES SNOMED Code(s): 151368379 Comment: Repeat LFT's 01/10. (4) Renal cyst Current Visit: Yes Status: Acute Code(s): N28.1 - CYST OF KIDNEY, ACQUIRED SNOMED Code(s): 987817630 Comment: Upper pole R kidney, minimally complex. MRI with contrast ordered. Status and Disposition: OBV will be changed to inpatient
[2019-01-09] MEDS ORDERED: Vancomycin Trough Check NOTE FOLLOW UP ONE (19:30)
[2019-01-09] MEDS ORDERED: Gadoteridol* (CONTRAST) 279.3 MG/ML 10 ML IV ONE (19:51)
[2019-01-10] MEDS ORDERED: Vancomycin(*) 1,500 MG in NS 0.9% 250 ML* 250 ML IVPB SCH (05:30)
[2019-01-10 05:46] LABS: Albumin 3.3 g/dL (3.2-5.2); Albumin/Globulin Ratio 1.2 (1-3); BUN/Creatinine Ratio 12.7 (8-20); Calcium 8.4 mg/dL (8.6-10.3); EGFR African American 147.1 (>60); EGFR Non-African American 121.5 (>60); Globulin 2.7 g/dL (2-4); Potassium 4.1 mmol/L (3.5-5.0); Total Bilirubin 0.3 mg/dL (0.2-1.0)
[2019-01-10] MEDS: ZOSYN 3.375 GM Q8H per EXTENDED INFUSION IVPB SCH ×2 (08:15)
[2019-01-10] MEDS ORDERED: Cetirizine* 10 MG TAB PO SCH (09:00)
[2019-01-10] MEDS ORDERED: FLUoxetine CAP* 20 MG PO SCH (09:00)
[2019-01-10] MEDS ORDERED: Amphetamine/Dextroamph ER(NF) 15 MG CAP.ER PO SCH (09:00)
--- NOTE | 2019-01-10 11:04 | PN ---
Progress Note - Progress Note Date of Service: 01/10/19 Note: S: no c/o; pain is better; cont on Zosyn O: Vital Signs - 8 hr 01/10/19 01/10/19 03:29 08:00 Temperature 98.2 F Pulse Rate 49 Respiratory 16 16 Rate Blood Pressure 124/57 (mmHg) O2 Sat by Pulse 98 Oximetry Gen: NAD LLE: min tenderness to palp; small to mod amt of sang drainage on dsg; pkg changed (1/2" plain packing); ese'd well. Mostly bloody drainage. A/P: will arrange for pck changes at [facility] for 01/11 and 01/12, with f/u in our office on 01/14.
[2019-01-10 12:16] VITALS: BP 107/38
--- NOTE | 2019-01-10 14:24 | DS ---
DISCHARGE SUMMARY: DATE OF ADMISSION: 01/07/19 DATE OF DISCHARGE: 01/10/19 HOSPITAL COURSE: This 23-year-old man presented with left calf swelling. He bought some injectable vitamin B12 over the Internet and had given himself a certain number of injections in his left calf because of his fatigability. He had trouble dorsiflexing his ankle and is diagnosed with cellulitis in the ED. Venous Doppler was done and showed heterogenous hypoechoic area 7.6 x 1.0 x 5.0 cm, thought to be a hematoma. Dr. Mckeon was contacted and recommended that he stay overnight so he could evaluate him in the morning. The patient at first was placed on doxycycline after the I and D revealed purulent material. He was put on vancomycin and piperacillin/tazobactam. Cultures from the wound as well as 2 sets of blood cultures with no growth at the time of this dictation. The patient did well on the hospital. He never had a fever. His white blood count fell from 11.8 to 9.8. On the day of discharge, he had his wound repacked. He will go the next day to the [facility] to have it repacked again. He will take 7 days of amoxicillin/clavulanic acid 875 mg b.i.d. in addition to his usual medications. FINAL DIAGNOSES: 1. Left calf abscess. 2. Attention deficit hyperactivity disorder and obsessive-compulsive disorder. DISCHARGE MEDICATIONS: 1. Acetaminophen 650 mg every 6 hours p.r.n. 2. Amoxicillin/clavulanate 875 mg b.i.d. for 7 days. 3. Adderall XR 15 mg daily. 4. Cetirizine 10 mg daily. 5. Fluoxetine 60 mg daily. CONDITION ON DISCHARGE: Stable. DISPOSITION ON DISCHARGE: Discharged home. [id number]/[facility] #: [id number] HERMAN
[2019-01-10] MEDS ORDERED: Amoxicillin/Clavulanate TAB* 875 MG PO SCH (21:00)
[2019-01-11] MEDS ORDERED: Vancomycin Trough Check NOTE FOLLOW UP ONE (13:00)
== END 2019-01-10 13:38 | disposition home or self-care (01) ==
LOC: ED 17:50 → SSU 01-08 00:21
PROVIDERS: ADMIT Student in an Organized Health Care Education/Training Program; ATTEND Internal Medicine
DX: L02.416 Cutaneous abscess of left lower limb (principal); F90.1 Attention-deficit hyperactivity disorder, predominantly hyperactive type; F99 Mental disorder, not otherwise specified; R94.5 Abnormal results of liver function studies; N28.1 Cyst of kidney, acquired; R60.9 Edema, unspecified
CPT/HCPCS: 36415; 74183; 76705; 80053; 80074; 80202; 83605; 83735; 84100; 84443; 85025; 85610; 85730; 86140; 87040; 87070; 87073; 87205; 96365; 96366; 96375; 96376; 99284; A9270-GY; A9579; G0378; J0690; J1100; J1240; J1885; J2250; J2405; J2543; J2704; J3010; J3370; Q9967